=== PATIENT | female | born 1970 ===

== ENCOUNTER 2018-07-02 09:25 | Outpatient (CLI) | payer OTHER ==
[~2018-07-02] VITALS: Ht 170.2 cm; Wt 63.0 kg
[2018-07-02] MEDS ORDERED: ZANTAC300 MG PO (12:26)
[2018-07-02] MEDS ORDERED: FLONASE16 GM NASAL (12:26)
== END 2018-07-02 14:28 | disposition home or self-care (01) ==
LOC: OFIC 805 09:25
DX: C73 Malignant neoplasm of thyroid gland (principal); C76.0 Malignant neoplasm of head, face and neck; R05 Cough; J31.0 Chronic rhinitis; J37.0 Chronic laryngitis; R22.1 Localized swelling, mass and lump, neck; E03.9 Hypothyroidism, unspecified